=== PATIENT | male | born 1950 | race Caucasian/White ===

== ENCOUNTER 2017-05-09 07:00 | Emergency (ER) | payer MEDICAID, OTHER ==
[~2017-05-09] VITALS: Ht 175.3 cm; Wt 60.0 kg
[2017-05-09 07:09] VITALS: BP 155/84; PULSE 51; RESP 16; O2SAT 100
--- NOTE | 2017-05-09 07:19 | ED.REPORT ---
HPI-Back Pain 40 and Over Date of Service May 09, 2017 ED Provider: The patient is a 67 year old male with history of herniated discs and hypertension, who presents to the emergency department complaining of chronic lower back pain that has been worsening over the last week. He describes the pain as deep, aching, and 10/10. The pain is more severe on the right side compared to the left. The pain radiates down both legs. He has also noticed increased weakness over the last day and feels like his legs have "given out and buckled" while walking. He has had multiple falls in the last few days. He has not hit his head or lost consciousness. He also mentions urinary and fecal incontinence that began about 1 week ago as well. He also feels like he is unable to fully empty his bladder. He mentions having dark tarry stools over the last several days as well. He denies numbness, fever, chills, vomiting or constipation. The patient is currently homeless. He denies IV drug use. Nursing Notes Stated Complaint: BACK PAIN Chief Complaint: Back Pain or Injury Nursing Notes Reviewed: Yes Allergies: Coded Allergies: Penicillins (Verified Allergy, Severe, HIVES, 05/09/17) Sulfa (Sulfonamide Antibiotics) (Verified Allergy, Severe, HIVES, 05/09/17) Scheduled PRN Cyclobenzaprine (Cyclobenzaprine) 10 Mg Tablet 10 MG PO TID PRN PRN Spasm Naproxen (Naproxen) 375 Mg Tablet 375 MG PO BID PRN PRN For Pain General Time Seen by MD: 07:19 Chief Complaint Back pain Hx Obtained From: Patient Arrived By: Wheelchair Sudden in Onset?: No Onset Occurred: More than a week ago... Symptom Duration: Since onset Caused by: Chronic Injury Location: : Perispinal lumbar Quality: Aching, Painful Radiation: : Left leg below knee: Right leg below knee Severity: Current: Moderate Severity: Maximum: Severe Recent Healthcare: No recent hospitalization Similar Sx Previous: Yes Past Medical History Past Medical History Herniated discs Hypertension Family History Noncontributory Smoking History Former Smoker Social History Alcohol Use: Denies alcohol use Drug Use: THC Other Social History: Homeless Ambulatory Status Independent Review of Systems Review of Systems Note: +unable to empty bladder completely, dark tarry stools Constitutional: Denies: Chills, Fever GI: Denies: Vomiting Musculoskeletal: Reports: Back pain, Extremity pain Neurologic: Reports: Bladder dysfunction, Bowel dysfunction, Problem walking, Weakness, Denies: Change LOC, Headache, Syncope Complete sys rev & neg: except as marked. Physical Exam Initial Vital Signs Vital Signs (First) Date Time Temp Pulse Resp B/P Pulse Ox O2 Delivery O2 Flow Rate FiO2 05/09/17 07:09 36.4 51 16 155/84 100 Room Air Initial VS: Reviewed Head / Eyes: Atraumatic, Normocephalic, PERRL ENT: Mucous membranes moist, Conjunctiva normal, No scleral icterus Neck: Supple, Non-tender, Full range of motion Extremities: Vascular intact, Neuro intact, No swelling, No tenderness Skin: Warm, Dry, No cyanosis Psychiatric: Mood/affect normal, Behavior normal, Normal thought content General/Constitutional: Awake, Alert, No acute distress, Cooperative Respiratory / Chest: Atraumatic, Breath sounds NL, Breath sounds = bilat, No respiratory distress, No rales, No rhonchi, No wheezing Cardiovascular: Heart rate NL, Regular rhythm, Heart sounds NL, No murmurs, No rubs, Peripheral circulation NL Abdomen: Atraumatic, Soft, Non-tender, No guarding, No rebound, No distention, No palpable mass, No pulsatile mass BACK: Lower lumbar tenderness. 5/5 motor function to his bilateral lower extremities. Normal sensory function. Neurologic: Oriented X3, Speech NL, No motor deficits, No sensory deficits, CN II - XII intact, Cerebellar NL, Memory NL Rectum / Perineum: Atraumatic, Blood - occult heme -, controls designer passed, No gross blood, Sphincter tone NL, No saddle anesthesia Light brown stool Interpretation & Diagnostics LUMBAR SPINE MRI WITHOUT CONTRAST IMPRESSION: 1. Multilevel degenerative disc disease. 2. Multilevel facet arthropathy. 3. Mild to moderate L2-L3, L3-L4 and L4-L5 central canal narrowing. Mild bilateral L1-L2 and L5-S1 neural foraminal narrowing. Moderate bilateral L2 -L3 neural foraminal narrowing. Severe right and moderate to severe left L3-L4 neural foraminal narrowing. Moderate right and moderate to severe left L4-L5 neural foraminal narrowing. 4. Slight flattening deformity exiting right L3 nerve root. Please correlate with clinical data. 5. L5-S1 disc annulus fissure. Dictated by: Gracia Mayers MD, PhD on 05/09/2017 at 11:36 Lab Results Interpretation Result Diagram: 05/09/17 0835 05/09/17 0835 Test 05/09/17 08:35 White Blood Count 5.7th/mm3 (3.8-10.1) Red Blood Count 4.46mil/mm3 (4.40-5.80) Hemoglobin 14.8g/dL (13.8-17.2) Hematocrit 42.5% (41.0-50.0) Mean Corpuscular Volume 95.3fL (81-100) Mean Corpuscular Hemoglobin 33.2pg (27.0-35.0) Mean Corpuscular Hemoglobin Concent 34.8% (32.0-37.0) Red Cell Distribution Width 12.3% (12.3-15.4) Platelet Count 162bil/L (150-400) Neutrophils (%) (Auto) 61.6% (40-74) Lymphocytes (%) (Auto) 23.2% (14-46) Monocytes (%) (Auto) 10.2% (4-12) Eosinophils (%) (Auto) 3.9% (0-5) Basophils (%) (Auto) 0.9% (0-3) Erythrocyte Sedimentation Rate 3mm/hr (0-30) Sodium Level 143mEq/L (134-144) Potassium Level 4.1mEq/L (3.5-5.2) Chloride Level 105mEq/L (97-108) Carbon Dioxide Level 27mmol/L (18-29) Blood Urea Nitrogen 26mg/dL (8-27) Creatinine 0.46mg/dL (0.76-1.27) Estimat Glomerular Filtration Rate 193mL/min (>59) Glucose Level 95mg/dL (60-99) Calcium Level 9.7mg/dL (8.5-10.1) Total Bilirubin 1.3mg/dL (0.0-1.2) Aspartate Amino Transf (AST/SGOT) 16U/L (0-50) Alanine Aminotransferase (ALT/SGPT) 15U/L (0-44) Alkaline Phosphatase 62U/L (25-160) Total Protein 7.3g/dL (6.4-8.4) Albumin 4.4g/dL (3.4-5.0) Hold Elizabeth Top Tube Received (Received) X-Ray Interpretation Xray Interpretation: IMPRESSION: 1. Multilevel degenerative disc disease throughout the lumbar spine as well as mild facet arthropathy in the lower lumbar spine. Dictated by: Fei Ratliff M.D. on 05/09/2017 at 9:21 Study Performed: Lumbar spine Interpretation / Wet Read by: Interpret - Radiologist Re-Eval/Medical Decision Med Decision/Clinical Course No radiographic evidence of cauda equina syndrome, additionally given the findings of a normal rectal and lower extremity neurologic exam cauda equina or other mass occupying lesion seems unlikely. Patient has a lumbar strain with radiculopathy. He is discharged on ibuprofen and cyclobenzaprine. Return and follow-up precautions given. Re-Evaluation/Progress : Time of Eval: 11:47 Re-Evaluation/Progress Note: Rechecked the patient. Discussed results, diagnosis, and plan for discharge. All questions were addressed. Consultation : Referral / Consult Name: Gracia Mayers MD, PhD Call Returned at: 11:45 Note: Spoke with the on-call radiologist about the patient's MRI results. Counseled Regarding: Diagnosis, Need for follow-up, When/why to return to ED Discharge & Departure Impression: Primary Impression: Low back pain Chronicity: chronic Back pain laterality: bilateral Sciatica presence: with sciatica Sciatica laterality: bilateral sciatica Qualified Code: M54.42 - Lumbago with sciatica, left side Additional Impression: Bowel and bladder incontinence Disposition: Home Discharge Condition All VS Reviewed: Yes Condition: Stable Patient Instructions: Lumbar Radiculopathy (ED) Additional Instructions: Thank you for entrusting us with your care today. Your MRI results are reassuring. There is no evidence of anything acutely dangerous at this time. You can use Naproxen as needed for your pain. You can also try applying ice or heat to the painful areas if this helps. Followup with a regular doctor for re-evaluation and further management. We have given you a referral to the residency clinic and [facility]. You may also want to followup with a spine surgeon. We do not have one in [place]. [place] Discuss getting a referral with your regular doctor. Use the housing resources that were provided to you. Return to the emergency department for any new or concerning symptoms. Referrals: [facility] Residency Clinic [facility] Crit Care Except Billable Proc Time Spent: 30-74 minutes Services Performed: Patient management by me, Time spent at bedside, Reviewing test results Critical Care Notes: See MDM Scribe Attestation Portions of this note were transcribed by Edwina Layne. I, Dr. De Oliveira personally performed the history, physical exam and medical decision-making; I reviewed and confirmed the accuracy of the information in the transcribed note. Signed by: Neville Livingston, 05/09/2017 at 1230. copies to: [facility]; [facility] Conner De Oliveira DO May 09, 2017 07:19 Edwina Layne May 09, 2017 07:30
[2017-05-09] MEDS ORDERED: Ketorolac 15 mg/mL Inj IV ONE (08:20)
[2017-05-09 08:50] LABS: BASOPHILS % (AUTO) 0.9 % (0-3); EOSINOPHILS % (AUTO) 3.9 % (0-5); MONOCYTES % (AUTO) 10.2 % (4-12); Mean Corpuscular Hemoglobin 33.2 pg (27.0-35.0); Mean Corpuscular Volume 95.3 fL (81-100); NEUTROPHILS % (AUTO) 61.6 % (40-74); Platelet Count 162 bil/L (150-400)
--- NOTE | 2017-05-09 09:26 | DRSVH ---
PROCEDURE: X-RAY LUMBAR SPINE, 2 OR 3 VIEW INDICATIONS: low back pain, TECHNIQUE: 3 views of the lumbar spine were acquired. COMPARISON: None. FINDINGS: Bones: 5 [id number] vertebrae are present. There are rudimentary ribs at T12. There is minimal retrolisthesis at L1-L2 and L3-L4. There is mild multilevel disc space narrowing throughout the lum bar spine. Mild facet arthropathy is also present in the lumbar spine. No vertebral body compressio n fractures. No suspicious bony lesions. Soft tissues: Overlying bowel gas pattern is normal. There are calcifications in the right upper qu adrant of the abdomen suggestive of gallstones. Calcifications in the pelvis are also noted compatib le with phleboliths. IMPRESSION: 1. Multilevel degenerative disc disease throughout the lumbar spine as well as mild facet arthropath y in the lower lumbar spine. Dictated by: Fei Ratliff M.D. on 05/09/2017 at 9:21 Approved by: Fei Ratliff M.D. on 05/09/2017 at 9:25
[2017-05-09 09:27] LABS: ERYTHROCYTE SEDIMENTATION RATE 3 mm/hr (0-30)
--- NOTE | 2017-05-09 11:46 | DRSVH ---
PROCEDURE: MRI LUMBAR SPINE WITHOUT CONTRAST ([id number]) INDICATIONS: back pain, bowel, bladder incontinence TECHNIQUE: Noncontrast sagittal T1 spin echo and T2 fast echo, sagittal STIR, axial T1 and T2 fast spin echo thr ough the lumbar spine. In cases with scoliosis, additional coronal T2 fast spin echo may be performe d. COMPARISON: [facility], CR, XR LUMBAR SPINE 2 OR 3VW, 05/09/2017, 8:25. FINDINGS: Image quality: Excellent. Alignment and Curvature: There is normal bony alignment and curvature. Bone Marrow: Reactive endplate change is noted adjacent to the L1-L2, L2-L3, L3-L4, L4-L5 and L5-S1 d iscs. No acute vertebral body compression fractures. Spinal Cord: Conus medullaris terminates at the L1-L2 disc level. Visualized cord demonstrates norm al signal and size. Paraspinous Soft Tissues: No paravertebral masses. Right renal cyst is noted. L1-L2: Loss of disc signal. Mild, diffuse disc bulge. No central stenosis. Mild bilateral neural fora dneise narrowing secondary to disc disease. No neural impingement. L2-L3: Loss of disc signal and height. Mild, diffuse disc bulge. Small left central disc protrusion s uperimposed on diffuse disc bulge. Mild bilateral facet hypertrophy. Mild to moderate narrowing of th e central canal secondary to disc disease and facet hypertrophy. Moderate bilateral neural foraminal narrowing secondary to disc and facet disease. L3-L4: Loss of disc signal and height. Moderate, diffuse disc bulge. Mild facet hypertrophy. Mild-to- moderate narrowing the central canal secondary to disc disease and facet hypertrophy. Severe right an d [id number] left neural foraminal narrowing secondary to disc and facet disease. L4-L5: Loss of disc signal and disc height. Mild, diffuse disc bulge. Mild to moderate bilateral face t hypertrophy. Mild to moderate central canal secondary to disc disease and facet hypertrophy. Modera te right and moderate to severe left neural foraminal narrowing secondary to disc and facet disease. L5-S1: Loss of disc signal. Mild, diffuse disc bulge. [id number] bilateral facet hypertrophy. N o central stenosis. Mild bilateral neural foraminal narrowing secondary to disc and facet disease. Fo heather hypodensities are noted in the posterior annulus compatible the fissure. IMPRESSION: 1. Multilevel degenerative disc disease. 2. Multilevel facet arthropathy. 3. Mild to moderate L2-L3, L3-L4 and L4-L5 central canal narrowing. Mild bilateral L1-L2 and L5-S1 neural foraminal narrowing. Moderate bilateral L2-L3 neural foraminal narrowing. Severe right and moderate to severe left L3-L4 neural foraminal narrowing. Moderate right and moderate to severe left L4-L5 neural foraminal narrowing. 4. Slight flattening deformity exiting right L3 nerve root. Please correlate with clinical data. 5. L5-S1 disc annulus fissure. Dictated by: Gracia Mayers MD, PhD on 05/09/2017 at 11:36 Approved by: Gracia Mayers MD, PhD on 05/09/2017 at 11:44
[2017-05-09] MEDS ORDERED: CYCL10TA9 PO (12:26)
[2017-05-09] MEDS ORDERED: NAPR375T2 PO (12:26)
[2017-05-09 12:40] VITALS: BP 156/76; PULSE 78; RESP 17; O2SAT 98
== END 2017-05-09 12:40 | disposition home or self-care (01) ==
LOC: SED 07:00
DX: M54.41 Lumbago with sciatica, right side (principal); M54.42 Lumbago with sciatica, left side; W19.XXXA Unspecified fall, initial encounter; Y93.01 Activity, walking, marching and hiking; Y92.89 Other specified places as the place of occurrence of the external cause; Y99.8 Other external cause status; G89.29 Other chronic pain; N32.89 Other specified disorders of bladder; R15.9 Full incontinence of feces; R19.5 Other fecal abnormalities; R32 Unspecified urinary incontinence; R53.1 Weakness; I10 Essential (primary) hypertension; Z59.0 Homelessness; Z87.891 Personal history of nicotine dependence; Z88.0 Allergy status to penicillin; Z88.2 Allergy status to sulfonamides
CPT/HCPCS: 36415; 72100; 72148; 80053; 85025; 85651; 96374; 96375; 99285; J1885; J3360